=== PATIENT | female | born 1975 | race Two or more races ===

== ENCOUNTER 2017-05-16 13:30 | Emergency (ER) | payer OTHER ==
[2017-05-16 13:37] VITALS: BP 141/102; PULSE 90; TEMP 98; BMI 35.2
[2017-05-16] MEDS ORDERED: KETOROLAC TROMETHAMINE 60 MG/2 ML VIAL IM ONE (14:06)
[2017-05-16] MEDS ORDERED: KETOROLAC TROMETHAMINE 60 MG/2 ML VIAL ONE (14:11)
--- NOTE | 2017-05-16 14:19 | PDOC ---
History of Present Illness - General Chief Complaint: Back Pain Stated Complaint: BACK PAIN Time Seen by Provider: 05/16/17 14:00 History Source: Patient Exam Limitations: No Limitations - History of Present Illness Initial Comments: 05/16/17 14:14 CHIEF COMPLAINT: Lower back pain HISTORY OF PRESENT ILLNESS:42-year-old female, no significant medical history currently no medication presents emergency Department with generalized lower back pain. Nonradiating pain, no neurosensory deficits, no bowel or bladder difficulty incontinence or urinary retention, no saddle anesthesia, no footdrop. No history of IVDU or history of cancer. Patient reports 3 days ago pain started when she was working and was moving furniture. Denies any urinary symptoms. No hematuria. REVIEW OF SYSTEMS: GENERAL: Afebrile, denies any weakness RESPIRATORY: No cough, wheezing, or hemoptysis. CARDIAC: No chest pain or shortness of breath MUSCULOSKELETAL: Pain to generalized lower back. No point tenderness. Pain worse on right than left. SKIN : No erythema, no bruising, no deformity. GI/: Denies any abdominal pain, no urinary difficulty, incontinence or urinary retention. RECTAL: Denies any difficulty this A.m. NEUROLOGICAL: Denies any numbness or tingling. No neurosensory deficits. PHYSICAL EXAM: GENERAL: The patient is awake, alert, and fully oriented, in no acute distress. RESPIRATORY: Lungs clear bilaterally, no rhonchi wheezes or crackles CARDIAC: S1-S2 audible, no murmur rub or gallop MUSCULOSKELETAL: Pain to generalized lower back, worse right lateral lower back , no tingling or sensory deficit. Less than 2 second cap refill, +4 popliteal and pedal pulses. GI/: Abdomen soft, nontender, nondistended. No rebound tenderness. No masses palpable. MUSCULOSKELETAL: No spinal point tenderness. Normal reflexive and no deficits to sensation or strength. RECTAL:Deferred patient with no neurological finding SKIN: Warm, Dry, normal turgor, no erythema, no edema no bruising. Past History - Past Medical History Allergies/Adverse Reactions: Allergies Allergy/AdvReac Type Severity Reaction Status Date / Time No Known Allergies Allergy Verified 05/16/17 13:37 Home Medications: Ambulatory Orders Cyclobenzaprine HCl [Flexeril 10 mg] 10 mg PO BID PRN #20 tablet 05/16/17 Ibuprofen [Motrin -] 600 mg PO QID #28 tablet 05/16/17 - Immunization History Immunization Up to Date: Yes - Psycho/Social/Smoking Cessation Hx Anxiety: No Suicidal Ideation: No Smoking Status: No Smoking History: Never smoked Have you smoked in the past 12 months: No Number of Cigarettes Smoked Daily: 0 Cigars Per Day: 0 Information on smoking cessation initiated: Yes Hx Alcohol Use: No Drug/Substance Use Hx: No Substance Use Type: None Trauma Specific PMHX - Complaint Specific PMHX Arthritis: No Back Injury: No Neck Injury: No Hx Sacro Iliac Joint Dysfunction: No *Physical Exam - Vital Signs Last Vital Signs Temp Pulse Resp BP Pulse Ox 98.0 F 90 20 141/102 99 05/16/17 13:35 05/16/17 13:35 05/16/17 13:35 05/16/17 13:35 05/16/17 13:35 Medical Decision Making - Medical Decision Making 05/16/17 14:17 A/P: Patient with lower back pain, most likely musculoskeletal from moving furniture nonradiating, no dermatomal pain. No urinary symptoms. We will have her send urinalysis and urine culture patient reports the pain is to generalized lower back and on right lateral torso. Toradol 60 mg IM times one 05/16/17 14:20 Patient states relief of pain after the Toradol injection. Laboratory Results - last 24 hr 05/16/17 12:35 Urine Color Ltyellow Urine Appearance Clear Urine pH 7.0 Urine Protein Negative Urine Glucose (UA) Negative Urine Ketones Negative Urine Blood Negative Urine Nitrite Negative Urine Bilirubin Negative Urine Urobilinogen Negative Ur Leukocyte Esterase Negative Urine is negative, patient with lower back muscle strain. Follow-up with orthopedics in one week if pain persists Motrin and Flexeril as needed. I discussed the physical exam findings, ancillary test results and final diagnoses with the patient. I answered all of the patient's questions. The patient was satisfied with the care received and felt comfortable with the discharge plan and treatment plan. The patient will call to arrange follow-up and will return to the Emergency Department with any new, persistent or worsening symptoms. *DC/Admit/Observation/Transfer Diagnosis at time of Disposition: Low back pain Qualifiers: Chronicity: acute Back pain laterality: right Sciatica presence: without sciatica Qualified Code(s): M54.5 - Low back pain - Discharge Dispostion Disposition: HOME Condition at time of disposition: Good Admit: No - Prescriptions Prescriptions: Cyclobenzaprine HCl [Flexeril 10 mg] 10 mg PO BID PRN #20 tablet PRN Reason: Pain Ibuprofen [Motrin -] 600 mg PO QID #28 tablet - Referrals Referrals: Giuseppe Pierre MD [Staff Physician] - - Patient Instructions Printed Discharge Instructions: DI for Low Back Pain Additional Instructions: 1. Please return to the emergency department with any numbness, tingling, weakness, numbness or tingling to groin or legs, or loss of bowel or bladder function. 2. Use pain medication as ordered. 3. Please is to followup in the office of Dr. Pierre for evaluation within a week if no improvement. 4. Ice or heat 5. Refrain from lifting anything above 10 pounds, until pain resolved. - Post Discharge Activity Work/School Note: Back to Work
[2017-05-16 14:48] LABS: URINE APPEARANCE CLEAR; URINE BILIRUBIN NEGATIVE (NEGATIVE); URINE BLOOD NEGATIVE (NEGATIVE); URINE COLOR LTYELLOW; URINE GLUCOSE (UA) NEGATIVE (NEGATIVE); URINE KETONE NEGATIVE (NEGATIVE); URINE LEUK ESTERASE NEGATIVE (NEGATIVE); URINE NITRITE NEGATIVE (NEGATIVE); URINE PROTEIN NEGATIVE (NEGATIVE); URINE UROBILINOGEN NEGATIVE mg/dL (0.2-1.0)
== END 2017-05-16 15:19 | disposition home or self-care (01) ==
LOC: JERFT 13:30
PROC: 3E0233Z Introduction of Anti-inflammatory into Muscle, Percutaneous Approach (ICD-10-PCS; principal; 2017-05-16)
DX: M54.5 Low back pain (principal)
CPT/HCPCS: 81003; 87086; 99281-25

== ENCOUNTER 2018-02-13 10:38 | Emergency (ER) | payer OTHER ==
[2018-02-13 10:50] VITALS: TEMP 97; BMI 34.7
[2018-02-13] MEDS ORDERED: KETOROLAC TROMETHAMINE 60 MG/2 ML VIAL IM ONE (11:13)
[2018-02-13] MEDS ORDERED: KETOROLAC TROMETHAMINE 60 MG/2 ML VIAL ONE (11:30)
[2018-02-13 11:39] VITALS: BP 125/74; PULSE 86
--- NOTE | 2018-02-13 11:40 | PDOC ---
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 She did not take any medications, she does not take any meds this week. Pt is obese and posture is poor with flexion on LBP. She came in via EMS for pain Past History - Past Medical History Allergies/Adverse Reactions: Allergies Allergy/AdvReac Type Severity Reaction Status Date / Time No Known Allergies Allergy Verified 02/13/18 10:44 Home Medications: Ambulatory Orders Cyclobenzaprine HCl [Flexeril 10 mg] 10 mg PO TID PRN #9 tablet 09/04/17 Ibuprofen [Motrin -] 600 mg PO QID #28 tablet 09/04/17 COPD: No - Immunization History Immunization Up to Date: Yes - Suicide/Smoking/Psychosocial Hx Smoking Status: No Smoking History: Never smoked Have you smoked in the past 12 months: No Number of Cigarettes Smoked Daily: 0 Cigars Per Day: 0 Information on smoking cessation initiated: No Hx Alcohol Use: No Drug/Substance Use Hx: No Substance Use Type: None Review of Systems - Review of Systems Able to Perform ROS?: Yes Comments:: 02/13/18 15:23 ROS General statement: I have back pain Hematology: neg history of bleeding/blood thinners Skin: Neg for lesions, rash, bruising. HEENT: Neg symptoms Respiratory: Neg SOB or difficulty in breathing Cardiac: Neg chest pain GI: Neg pain, n/v : Neg problems on voiding MS: Neg for joint pain/stiffness, no edema Neuro: Neg for LOC, weakness, without numbness or tingling Endocrine: Neg for excess thirst/hunger, cold/heat intolerance, excess sweating Allergies: Neg for allergies PE General Appearance: This well appearing V/S: hemodynamically stable, afebrile Skin: WNL of pt's skin color, no signs of pallor, mottling, cyanosis Head:symmetrical Eyes: EOM's intact, PERRLA Ears: denies pain Nose: patent Throat: lips, teeth, gums, tongue, buccal mucos pink and moist Lungs: Chest symmetry equal. Cap refill <3 seconds. Lung sounds clear Cardiac: PMI at R 4MCL space, pos S1 and S2, regular rate. Abdomen: Soft, round, nontender : Not observed Muscularskeletal: Gait steady, ambulated in to ER, no edema +PMS with lower back pain Neuro: AAOx3, cognitively intact, speech clear and appropriate. *Physical Exam - Vital Signs Last Vital Signs Temp Pulse Resp BP Pulse Ox 97 F L 93 H 18 139/91 98 02/13/18 10:44 02/13/18 11:15 02/13/18 11:15 02/13/18 11:15 02/13/18 11:21 ED Treatment Course - Medications Given in the ED: ED Medications Discontinued Medications Generic Name Dose Route Start Last Admin Trade Name Freq PRN Reason Stop Dose Admin Ketorolac Tromethamine 60 mg 02/13/18 11:13 02/13/18 11:34 Toradol Injection - IM 02/13/18 11:14 60 mg ONCE ONE Administration Medical Decision Making - Medical Decision Making 02/13/18 15:24 Pt came in via EMS with c/o lower back pain and said she was lightheaded with the urge of anxiety causing b/p to elevate reassured pt orthostatics bp normal treated with toradol IM with great relief discharge with use of stretches and tylenol. *DC/Admit/Observation/Transfer Diagnosis at time of Disposition: Low back pain - Discharge Dispostion Disposition: HOME Condition at time of disposition: Stable Admit: No - Referrals - Patient Instructions Printed Discharge Instructions: Activity May Be Better then Rest for Low Back Pain Recovery Additional Instructions: Discharge instructions 1. Please follow up with your primary physician within the next few days and explain that you have been seen here in the Emergency Room. 2. If you experience any worsening of symptoms, please return to the ER 3. Rest, ice, Motrin as needed for pain, performed back stretches to help with lower back pain 4. Drink plenty of water - Post Discharge Activity Forms/Work/School Notes: Back to Work
--- NOTE | 2018-02-13 11:50 | PDOC ---
*Physical Exam - Vital Signs Last Vital Signs Temp Pulse Resp BP Pulse Ox 97 F L 86 17 125/74 98 02/13/18 10:44 02/13/18 11:15 02/13/18 11:15 02/13/18 11:15 02/13/18 11:21 - Physical Exam Comments: 02/13/18 11:50 The patient was examined by MILLIE Santiago under my direct supervision. I personally evaluated the patient. I concur with the above findings and the plan of care. ED Treatment Course - Medications Given in the ED: ED Medications Discontinued Medications Generic Name Dose Route Start Last Admin Trade Name Freq PRN Reason Stop Dose Admin Ketorolac Tromethamine 60 mg 02/13/18 11:13 02/13/18 11:34 Toradol Injection - IM 02/13/18 11:14 60 mg ONCE ONE Administration *DC/Admit/Observation/Transfer Diagnosis at time of Disposition: Low back pain - Discharge Dispostion Disposition: HOME Condition at time of disposition: Stable - Referrals - Patient Instructions Printed Discharge Instructions: Activity May Be Better then Rest for Low Back Pain Recovery Additional Instructions: Discharge instructions 1. Please follow up with your primary physician within the next few days and explain that you have been seen here in the Emergency Room. 2. If you experience any worsening of symptoms, please return to the ER 3. Rest, ice, Motrin as needed for pain, performed back stretches to help with lower back pain 4. Drink plenty of water - Post Discharge Activity Forms/Work/School Notes: Back to Work
== END 2018-02-13 11:50 | disposition home or self-care (01) ==
LOC: JER 10:38
PROC: 3E0233Z Introduction of Anti-inflammatory into Muscle, Percutaneous Approach (ICD-10-PCS; principal; 2018-02-13)
DX: M54.5 Low back pain (principal); E66.9 Obesity, unspecified; Z68.34 Body mass index [BMI] 34.0-34.9, adult
CPT/HCPCS: 99283-25

== ENCOUNTER 2018-03-09 21:42 | Emergency (ER) | payer OTHER ==
[2018-03-09 21:46] VITALS: BP 147/96; PULSE 100; TEMP 98.2; BMI 37.0
[2018-03-09] MEDS ORDERED: METOCLOPRAMIDE HCL INJECTION 10 MG/2 ML VIAL IVPB ONE (22:04)
--- NOTE | 2018-03-09 22:04 | PDOC ---
History of Present Illness - General Chief Complaint: Headache Stated Complaint: HEADACHE Time Seen by Provider: 03/09/18 21:53 History Source: Patient - History of Present Illness Initial Comments: 03/09/18 22:08 Best Contact:[phone] Pmhx:Migraines/HTN Pshx: 2008/D&C;ectopic Allergies:NKDA LMP:02/26/2018 42-year-old female presents to the emergency department complaining of bitemporal 5/10 dull throbbing nonradiating intermittent headache 3 hours with phonophobia/photophobia without nausea/vomiting, fever/chills, facial pains, neck pain/stiffness, back pains, chest pain, shortness of breath, flank pains, abdominal pains, extremity numbness or tingling sensation. There are no exacerbating factors. The pain is alleviated minimally at rest. Past History - Past Medical History Allergies/Adverse Reactions: Allergies Allergy/AdvReac Type Severity Reaction Status Date / Time No Known Allergies Allergy Verified 02/13/18 10:44 Home Medications: Ambulatory Orders Cyclobenzaprine HCl [Flexeril 10 mg] 10 mg PO TID PRN #9 tablet 09/04/17 Ibuprofen [Motrin -] 600 mg PO QID #28 tablet 09/04/17 Lisinopril 10 mg PO DAILY 03/09/18 COPD: No HTN: Yes - Immunization History Immunization Up to Date: Yes - Suicide/Smoking/Psychosocial Hx Smoking Status: No Smoking History: Never smoked Have you smoked in the past 12 months: No Number of Cigarettes Smoked Daily: 0 Cigars Per Day: 0 Information on smoking cessation initiated: No Hx Alcohol Use: No Drug/Substance Use Hx: No Substance Use Type: None Review of Systems - Review of Systems Able to Perform ROS?: Yes Comments:: 03/09/18 22:09 CONSTITUTIONAL: Absent: fever, chills, diaphoresis, generalized weakness, malaise, loss of appetite HEENT: Absent: rhinorrhea, nasal congestion, throat pain, throat swelling, difficulty swallowing, mouth swelling, ear pain, eye pain, visual Changes CARDIOVASCULAR: Absent: chest pain, loss of consciousness, palpitations, irregular heart rate, peripheral edema RESPIRATORY: Absent: cough, shortness of breath, dyspnea with exertion, orthopnea, wheezing, stridor, hemoptysis GASTROINTESTINAL: Absent: abdominal pain, abdominal distension, nausea, vomiting, diarrhea, constipation, melena, hematochezia GENITOURINARY: Absent: dysuria, frequency, urgency, hesitancy, hematuria, flank pain, genital pain MUSCULOSKELETAL: Absent: myalgia, arthralgia, joint swelling SKIN: Absent: rash, itching, pallor HEMATOLOGIC/IMMUNOLOGIC: Absent: easy bleeding, easy bruising, lymphadenopathy, frequent infections NEUROLOGIC: +Bitemporal bond Absent: focal weakness or paresthesias, dizziness, unsteady gait, seizure, mental status changes, bladder or bowel incontinence Is the patient limited Citizen Of [place] proficient: No *Physical Exam - Vital Signs Last Vital Signs Temp Pulse Resp BP Pulse Ox 98.2 F 100 H 16 147/96 100 03/09/18 21:44 03/09/18 21:44 03/09/18 21:44 03/09/18 21:44 03/09/18 21:44 - Physical Exam Comments: 03/09/18 22:10 GENERAL: Well developed, well nourished. Awake and alert. No acute distress. HEENT: Normocephalic, atraumatic. PERRLA, EOMI. No conjunctival pallor. Sclera are non- icteric. Moist mucous membranes. Oropharynx is clear. NECK: Supple. Full ROM. No JVD. Carotid pulses 2+ and symmetric, without bruits. No thyromegaly. No lymphadenopathy. CARDIOVASCULAR: Regular rate and rhythm. No murmurs, rubs, or gallops. Distal pulses are 2+ and symmetric. PULMONARY: No evidence of respiratory distress. Lungs clear to auscultation bilaterally. No wheezing, rales or rhonchi. ABDOMINAL: Soft. Non-tender. Non-distended. No rebound or guarding. No organomegaly. Normoactive bowel sounds. MUSCULOSKELETAL Normal range of motion at all joints. No bony deformities or tenderness. No CVA tenderness. EXTREMITIES: No cyanosis. No clubbing. No edema. No calf tenderness. SKIN: Warm and dry. Normal capillary refill. No rashes. No jaundice. NEUROLOGICAL: Alert, awake, appropriate. Cranial nerves 2-12 intact. No deficits to light touch and temperature in face, upper extremities and lower extremities. No motor deficits in the in face, upper extremities and lower extremities. Normoreflexic in the upper and lower extremities. Normal speech. Toes are down- going bilaterally. Gait is normal without ataxia. PSYCHIATRIC: Cooperative. Good eye contact. Appropriate mood and affect. *DC/Admit/Observation/Transfer Diagnosis at time of Disposition: Headache Qualifiers: Headache type: tension-type Headache chronicity pattern: unspecified pattern Intractability: not intractable Qualified Code(s): G44.209 - Tension-type headache, unspecified, not intractable - Discharge Dispostion Condition at time of disposition: Stable Decision to Admit order: No - Referrals Referrals: Ok Sarabia MD [Staff Physician] - - Patient Instructions Printed Discharge Instructions: DI for Headache Additional Instructions: Increase fluid intake Take Tylenol alternating with Motrin as needed for the headache Follow-up with the neurologist this week Return back to the emergency department for severe/persistent or worsening symptoms - Post Discharge Activity Forms/Work/School Notes: Back to Work
[2018-03-09] MEDS ORDERED: METOCLOPRAMIDE HCL INJECTION 10 MG/2 ML VIAL ONE (22:23)
== END 2018-03-09 23:24 | disposition home or self-care (01) ==
LOC: JER 21:42
DX: G44.209 Tension-type headache, unspecified, not intractable (principal)
CPT/HCPCS: 99282-25

== ENCOUNTER 2019-04-16 11:25 | Emergency (ER) | payer OTHER ==
[2019-04-16 11:32] VITALS: BP 133/95; PULSE 90; TEMP 98.5; BMI 30.9
--- NOTE | 2019-04-16 11:49 | PDOC ---
History of Present Illness - General Chief Complaint: Urinary Problem Stated Complaint: UTI Time Seen by Provider: 04/16/19 11:30 History Source: Patient Exam Limitations: No Limitations (urinary urgency and dysuria X 1 day) - History of Present Illness Abdominal Pain Onset Location: reports: suprapubic (pressure, no pain) Past History - Travel Traveled outside of the country in the last 30 days: No Close contact w/someone who was outside of country & ill: No - Past Medical History Allergies/Adverse Reactions: Allergies Allergy/AdvReac Type Severity Reaction Status Date / Time No Known Allergies Allergy Verified 03/09/18 23:23 Home Medications: Ambulatory Orders Cyclobenzaprine HCl [Flexeril 10 mg] 10 mg PO TID PRN #9 tablet 09/04/17 Ibuprofen [Motrin -] 600 mg PO QID #28 tablet 09/04/17 Lisinopril 10 mg PO DAILY 03/09/18 Nitrofurantoin Monohyd/M-Cryst [Macrobid -] 100 mg PO BID #14 capsule 04/16/19 COPD: No HTN: Yes - Immunization History Immunization Up to Date: Yes - Suicide/Smoking/Psychosocial Hx Smoking Status: No Smoking History: Never smoked Have you smoked in the past 12 months: No Number of Cigarettes Smoked Daily: 0 Cigars Per Day: 0 Information on smoking cessation initiated: No Hx Alcohol Use: No Drug/Substance Use Hx: No Substance Use Type: None Abd/GI Specific PMHX - Complaint Specific PMHX Colitis: No Review of Systems - Review of Systems Is the patient limited Bengali proficient: No Constitutional: No: Chills, Fever ABD/GI: No: Abd. Pain w/ defecation, Constipated, Diarrhea, Nausea, Vomiting, Abdominal cramping : Yes: Burning, Dysuria, Frequency, Urgency. No: Discharge, Flank Pain, Hematuria, Incontinence, Pain *Physical Exam - Vital Signs Last Vital Signs Temp Pulse Resp BP Pulse Ox 98.5 F 90 16 133/95 100 04/16/19 11:29 04/16/19 11:29 04/16/19 11:29 04/16/19 11:29 04/16/19 11:29 - Physical Exam General Appearance: Yes: Nourished Respiratory/Chest: positive: Lungs Clear, Normal Breath Sounds Cardiovascular: positive: Regular Rhythm, Regular Rate, S1, S2 Gastrointestinal/Abdominal: positive: Normal Bowel Sounds, Soft Musculoskeletal: positive: Normal Inspection Extremity: positive: Normal Capillary Refill, Normal Inspection Integumentary: positive: Normal Color Neurologic: positive: pool manager II-XII NML intact, Fully Oriented, Alert, Normal Mood/ Affect, Normal Response, Motor Strength 03/02 Medical Decision Making - Medical Decision Making 04/16/19 11:48 44y/o F with urinary urgency, frequency and dysuria since yesterday pt admits to suprapubic pressure but no pain she has no vaginal discharge, fever, chills or STI concerns UA sent *DC/Admit/Observation/Transfer Diagnosis at time of Disposition: UTI (urinary tract infection) Qualifiers: Urinary tract infection type: acute cystitis Hematuria presence: without hematuria Qualified Code(s): N30.00 - Acute cystitis without hematuria - Discharge Dispostion Disposition: HOME Decision to Admit order: No - Prescriptions Prescriptions: Nitrofurantoin Monohyd/M-Cryst [Macrobid -] 100 mg PO BID #14 capsule - Referrals Referrals: ON STAFF,NOT [Primary Care Provider] - - Patient Instructions Printed Discharge Instructions: Urinary Tract Infection Additional Instructions: You have a bladder infection please take antibiotics as prescribed A culture was also sent out, you may be contacted if the antibiotics needs to be changed Return to the ER if worsening symptoms occurs. - Post Discharge Activity
[2019-04-16 12:23] LABS: EPI CELLS 2.7 /HPF (0-5/HPF); HYALINE CASTS 10 /lpf (0-8); URINE APPEARANCE CLEAR; URINE BACTERIA 160.1 /hpf (NEGATIVE); URINE BILIRUBIN NEGATIVE (NEGATIVE); URINE COLOR YELLOW; URINE GLUCOSE (UA) NEGATIVE (NEGATIVE); URINE KETONE NEGATIVE (NEGATIVE); URINE LEUK ESTERASE 1+ (NEGATIVE); URINE NITRITE NEGATIVE (NEGATIVE); URINE PROTEIN NEGATIVE (NEGATIVE); URINE RBC 10 /hpf (0-4); URINE UROBILINOGEN 0.2 mg/dL (0.2-1.0); URINE WBC 30 /hpf (0-5)
== END 2019-04-16 12:48 | disposition home or self-care (01) ==
LOC: JERFT 11:25
DX: N30.00 Acute cystitis without hematuria (principal); I10 Essential (primary) hypertension
CPT/HCPCS: 81003; 84703; 87086; 87186; 99282-25

== ENCOUNTER 2019-10-28 13:54 | Emergency (ER) | payer OTHER ==
[2019-10-28 14:09] VITALS: BP 128/74; PULSE 85; TEMP 98.2; BMI 32.5
--- NOTE | 2019-10-28 14:54 | PDOC ---
History of Present Illness - General Chief Complaint: Cold Symptoms Stated Complaint: Cold Symptoms Time Seen by Provider: 10/28/19 14:21 - History of Present Illness Initial Comments: 10/28/19 14:52 44-year-old female with a past medical history of hypertension presents for evaluation of vomiting and diarrhea x1 day without systemic symptoms Past History - Past Medical History Allergies/Adverse Reactions: Allergies Allergy/AdvReac Type Severity Reaction Status Date / Time No Known Allergies Allergy Verified 10/28/19 14:09 Home Medications: Ambulatory Orders Cyclobenzaprine HCl [Flexeril 10 mg] 10 mg PO TID PRN #9 tablet 09/04/17 Ibuprofen [Motrin -] 600 mg PO QID #28 tablet 09/04/17 Lisinopril 10 mg PO DAILY 03/09/18 Nitrofurantoin Monohyd/M-Cryst [Macrobid -] 100 mg PO BID #14 capsule 04/16/19 COPD: No HTN: Yes - Immunization History Immunization Up to Date: Yes - Psycho Social/Smoking Cessation Hx Smoking Status: No Smoking History: Unknown if ever smoked Have you smoked in the past 12 months: No Number of Cigarettes Smoked Daily: 0 Cigars Per Day: 0 Hx Alcohol Use: No Drug/Substance Use Hx: No Substance Use Type: None Review of Systems - Review of Systems Constitutional: Yes: Malaise. No: Fever ABD/GI: Yes: Diarrhea, Nausea, Vomiting. No: Blood Streaked Bowels *Physical Exam - Vital Signs Last Vital Signs Temp Pulse Resp BP Pulse Ox 98.2 F 85 16 128/74 100 10/28/19 14:06 10/28/19 14:06 10/28/19 14:06 10/28/19 14:06 10/28/19 14:06 - Physical Exam 10/28/19 14:53 GENERAL: The patient is awake, alert, and fully oriented, in no acute distress. HEAD: Normal with no signs of trauma. EYES: sclera anicteric, conjunctiva clear. ENT: Ears normal tympanic membranes normal oropharynx clear uvula midline NECK: Normal range of motion LUNGS: Breath sounds equal, clear to auscultation bilaterally. No wheezes, and no crackles. HEART: S1 and S2 without murmur, rub or gallop. ABDOMEN: Soft, nontender, normoactive bowel sounds. No guarding, no rebound. No masses. EXTREMITIES: Normal range of motion, no edema. No clubbing or cyanosis. No cords, erythema, or tenderness. NEUROLOGICAL: Cranial nerves II through XII grossly intact. Normal speech, normal gait. PSYCH: Normal mood, normal affect. SKIN: Warm, Dry, normal turgor, no rashes or lesions noted. Medical Decision Making - Medical Decision Making 10/28/19 14:53 Supportive care for viral gastroenteritis follow-up with primary care physician Discharge - Discharge Information Problems reviewed: Yes Clinical Impression/Diagnosis: Gastroenteritis Condition: Stable Disposition: HOME - Admission No - Follow up/Referral Referrals: Ronald Smith MD [Staff Physician] - - Patient Discharge Instructions Patient Printed Discharge Instructions: Viral Gastroenteritis, DI for Viral Gastroenteritis -- Adult Additional Instructions: Small sips of Pedialyte throughout the day to maintain hydration. Return to the emergency room for worsening symptoms. Without fail follow-up with your primary care physician in 2 to 3 days for further evaluation and treatment options. - Post Discharge Activity Work/Back to School Note: Back to Work
== END 2019-10-28 14:56 | disposition home or self-care (01) ==
LOC: JERFT 13:54
DX: K52.9 Noninfective gastroenteritis and colitis, unspecified (principal); I10 Essential (primary) hypertension
CPT/HCPCS: 99281-25

== ENCOUNTER 2020-06-28 09:39 | Emergency (ER) | payer OTHER ==
[2020-06-28 10:02] VITALS: TEMP 98.6; BMI 37.0
--- NOTE | 2020-06-28 10:35 | PDOC ---
History of Present Illness - General Chief Complaint: Chest Pain Stated Complaint: CHEST PAIN / HEADACHE Time Seen by Provider: 06/28/20 10:31 History Source: Patient - History of Present Illness Presenting Symptoms: Chest Pain Timing/Duration: reports: intermittent Past History - Medical History Allergies/Adverse Reactions: Allergies Allergy/AdvReac Type Severity Reaction Status Date / Time No Known Allergies Allergy Verified 06/28/20 09:59 Home Medications: Ambulatory Orders Lisinopril 10 mg PO DAILY 03/09/18 COPD: No HTN: Yes - Surgical History Abdominal Surgery: Yes (TIBUAL LIGATION) - Reproductive History Is Patient Now?: No - Immunization History Immunization Up to Date: Yes - Psycho-Social/Smoking History Smoking Status: No Smoking History: Never smoked Have you smoked in the past 12 months: No Number of Cigarettes Smoked Daily: 0 Cigars Per Day: 0 - Substance Abuse Hx (Audit-C & DAST Scrn) How often the patient has a drink containing alcohol: Never Score: In Men: 4 or > Positive; In Women: 3 or > Positive: 0 Screen Result (Pos requires Nsg. Audit-10AR): Negative In the last yr the pt used illegal drug/Rx for NonMed reason: No Score: Yes response is considered Positive: 0 Screen Result (Positive result requires Nsg. DAST-10): Negative Review of Systems - Review of Systems Constitutional: No: Chills, Fever Respiratory: No: Cough, Shortness of Breath Cardiac (ROS): Yes: Chest Pain. No: Lightheadedness, Palpitations, Syncope ABD/GI: No: Nausea, Vomiting *Physical Exam - Vital Signs Last Vital Signs Temp Pulse Resp BP Pulse Ox 98.6 F 94 H 20 167/98 100 06/28/20 09:59 06/28/20 09:59 06/28/20 09:59 06/28/20 09:59 06/28/20 09:59 - Physical Exam General Appearance: Yes: Appropriately Dressed. No: Apparent Distress HEENT: positive: Normal Voice Neck: positive: Supple Respiratory/Chest: positive: Lungs Clear, Normal Breath Sounds. 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 There is normal sinus rhythm with a normal rate. The axis is normal. The intervals are normal. There are no ST or T wave abnormalities. Impression: Normal twelve-lead EKG ED Treatment Course - RADIOLOGY Radiology Studies Ordered: Category Date Time Status HEAD CT WITHOUT CONTRAST [CT] Stat CT Scan 06/28/20 10:35 Completed Medical Decision Making - Medical Decision Making 06/28/20 10:32 45 yo F, HTN on hctz, here with diffuse headache x3 days on and off, pressure- like in nature, 8 out of 10 at its worst, with no worsening factors. Has not taken anything for pain. Usually does not get ADKINS per pt. Also reports dizziness. No visual changes, nausea, vomiting or focal weakness. Pt states she took her BP yesterday and that it was 170s/100s. Reports compliance w/ her meds. Patient also reporting vague left-sided chest pain intermittently x several months, no worsening/alleviating factors. No sob, diaphoresis, palpitations or syncope. States she has been seen in ED for same w/ neg w/u and told to follow-up with her PMD. Patient states due to COVID she has not been able to see MD. No cardiology eval in past and no prior stress testing. No current chest pain in ED. No sig fmhx see exam New onset ADKINS in setting of elevated BP BP 160/80 nilda ED / no focal deficits and well ramin -CTH pending Chronic chest pain Neg w/u in past EKG unremarkable today Anticipate dc w/cards f/u for out-pt stress testing 06/28/20 13:16 CTH read as normal. Pt asx upon discharge. Dc w/ cards referral for better management of BP and further eval of CP Discharge - Discharge Information Problems reviewed: Yes Clinical Impression/Diagnosis: Chest pain Qualifiers: Chest pain type: unspecified Qualified Code(s): R07.9 - Chest pain, unspecified Headache Qualifiers: Headache type: unspecified Headache chronicity pattern: acute headache Intractability: not intractable Qualified Code(s): R51 - Headache Condition: Stable Disposition: HOME - Follow up/Referral Referrals: Shay Pina MD [Staff Physician] - - Patient Discharge Instructions Patient Printed Discharge Instructions: DI for Atypical Chest Pain, DI for Headache Additional Instructions: You need ro follow up with cardiology for further evaluation of your chest pain and better management of you blood pressure You can follow up with Dr Pina but if MD does not accept your insurance, you can call your insurance for list of cardiologists Your EKG and head CT were both normal today - Post Discharge Activity
[2020-06-28 13:25] VITALS: BP 157/84; PULSE 89
--- NOTE | 2020-06-29 10:38 | EKG ---
Test Reason : Blood Pressure : / mmHG Vent. Rate : 085 BPM Atrial Rate : 085 BPM P-R Int : 130 ms QRS Dur : 082 ms QT Int : 396 ms P-R-T Axes : 049 018 032 degrees QTc Int : 471 ms NORMAL SINUS RHYTHM NORMAL ECG WHEN COMPARED WITH ECG OF 18-MAR-2020 16:33, NO SIGNIFICANT CHANGE WAS FOUND Confirmed by Zack Irvin MD ([id number]) on 06/29/2020 10:37:34 AM Referred By: Confirmed By:Zack Irvin MD
== END 2020-06-28 13:23 | disposition home or self-care (01) ==
LOC: JER 09:39 → SUPCPDRO 09:39 → JER 13:23
DX: R07.9 Chest pain, unspecified (principal); R51 Headache
CPT/HCPCS: 70450-TC; 93005; 93010; 99284-25

== ENCOUNTER 2021-10-28 14:54 | Emergency (ER) | payer OTHER ==
[2021-10-28 15:15] VITALS: BP 112/76; PULSE 87; TEMP 97.9; BMI 29.2
[2021-10-31 21:09] LABS: SARS-CoV-2 NAA Not Detected (Not Detected)
== END 2021-10-28 17:05 | disposition home or self-care (01) ==
LOC: JER 14:54
DX: J06.9 Acute upper respiratory infection, unspecified (principal)
CPT/HCPCS: 99283-25; C9803; U0003; U0005

== ENCOUNTER 2022-02-22 23:55 | Emergency (ER) | payer OTHER ==
[2022-02-23 00:15] VITALS: BP 138/82; PULSE 62; TEMP 97.6; BMI 32.2
[2022-02-23] MEDS ORDERED: metroNIDAZOLE 250 MG TABLET PO ONE (00:28)
[2022-02-23 01:37] LABS: EPI CELLS 1 /uL (0-25.1); HYALINE CASTS 0 /uL (0-3.1); URINE APPEARANCE CLEAR; URINE BACTERIA 3 /uL (0-1359); URINE BILIRUBIN NEGATIVE (NEGATIVE); URINE COLOR YELLOW; URINE GLUCOSE (UA) NEGATIVE (NEGATIVE); URINE KETONE NEGATIVE (NEGATIVE); URINE LEUK ESTERASE NEGATIVE (NEGATIVE); URINE NITRITE NEGATIVE (NEGATIVE); URINE PROTEIN NEGATIVE (NEGATIVE); URINE RBC 73 /uL (0-23.9); URINE WBC 1 /uL (0-25.8)
[2022-02-23 02:28] LABS: SYPHILIS W/ RPR CONF NON-REACTIVE (NONREACTIVE)
[2022-02-23 02:58] LABS: HIV INTERPRETATION NEGATIVE (NEGATIVE)
== END 2022-02-23 02:01 | disposition home or self-care (01) ==
LOC: JER 23:55
DX: Z20.2 Contact with and (suspected) exposure to infections with a predominantly sexual mode of transmission (principal)
CPT/HCPCS: 36415; 81003; 84703; 86780; 87086; 87389; 87491; 87591; 99281-25

== ENCOUNTER 2022-05-06 21:13 | Emergency (ER) | payer OTHER ==
[2022-05-06 21:24] VITALS: BP 112/75; PULSE 67; TEMP 98.1; BMI 32.2
[2022-05-06] MEDS ORDERED: KETOROLAC TROMETHAMINE 30 MG/1 ML VIAL IM ONE (22:44)
[2022-05-06] MEDS ORDERED: KETOROLAC TROMETHAMINE 30 MG/1 ML VIAL ONE (22:45)
== END 2022-05-06 23:10 | disposition home or self-care (01) ==
LOC: JERFT 21:13
PROC: 3E0233Z Introduction of Anti-inflammatory into Muscle, Percutaneous Approach (ICD-10-PCS; principal; 2022-05-06)
DX: M54.50 Low back pain, unspecified (principal)
CPT/HCPCS: 99284-25

== ENCOUNTER 2022-05-25 07:42 | Emergency (ER) | payer OTHER ==
[2022-05-25 07:44] VITALS: BP 140/87; PULSE 70; RESP 18; TEMP 98.1; BMI 31.2
[2022-05-25] MEDS ORDERED: KETOROLAC TROMETHAMINE 30 MG/1 ML VIAL IVPUSH ONE (08:01)
[2022-05-25] MEDS ORDERED: METOCLOPRAMIDE HCL INJECTION 10 MG/2 ML VIAL IM ONE (08:01)
[2022-05-25] MEDS ORDERED: SODIUM CHLORIDE 1,000 ML IV STA (08:01)
[2022-05-25] MEDS ORDERED: METOCLOPRAMIDE HCL INJECTION 10 MG/2 ML VIAL ONE (08:11)
[2022-05-25] MEDS ORDERED: KETOROLAC TROMETHAMINE 30 MG/1 ML VIAL ONE (08:12)
[2022-05-25] MEDS ORDERED: METOCLOPRAMIDE HCL INJECTION 10 MG/2 ML VIAL IVPUSH ONE (08:25)
== END 2022-05-25 09:22 | disposition home or self-care (01) ==
LOC: JER 07:42
PROC: 3E033GC Introduction of Other Therapeutic Substance into Peripheral Vein, Percutaneous Approach (ICD-10-PCS; principal; 2022-05-25)
DX: G44.89 Other headache syndrome (principal)
CPT/HCPCS: 93005; 93010; 99284-25

== ENCOUNTER 2022-08-01 08:16 | Emergency (ER) | payer OTHER ==
[2022-08-01 08:28] VITALS: BP 134/83; PULSE 78; RESP 16; TEMP 97.7; BMI 33.2
[2022-08-01] MEDS ORDERED: IBUPROFEN 600 MG TABLET (FP) PO ONE ×2 (08:48→08:53)
[2022-08-01] MEDS ORDERED: LIDOCAINE 5% TOPICAL PATCH TP ONE (08:49)
[2022-08-01] MEDS ORDERED: LIDOCAINE 5% TOPICAL PATCH ONE (08:53)
[2022-08-01] MEDS ORDERED: LIDOCAINE PATCH REMOVAL MC SCH (22:00)
== END 2022-08-01 11:32 | disposition home or self-care (01) ==
LOC: JERFT 08:16
DX: M54.50 Low back pain, unspecified (principal); M25.551 Pain in right hip
CPT/HCPCS: 72170-TC-FY; 73502-TC-RT-FY; 99284-25

== ENCOUNTER 2022-10-06 13:57 | Emergency (ER) | payer SELFPAY ==
[2022-10-06 14:13] VITALS: BP 122/78; PULSE 78; RESP 18; TEMP 98; BMI 32.2
[2022-10-06] MEDS ORDERED: KETOROLAC TROMETHAMINE 30 MG/1 ML VIAL IM ONE (14:38)
[2022-10-06] MEDS ORDERED: METHOCARBAMOL 500 MG TABLET PO ONE (14:38)
[2022-10-06] MEDS ORDERED: LIDOCAINE 5% TOPICAL PATCH TP ONE (14:44)
[2022-10-06] MEDS ORDERED: METHOCARBAMOL 500 MG TABLET ONE (14:55)
[2022-10-06] MEDS ORDERED: LIDOCAINE 5% TOPICAL PATCH ONE (14:55)
[2022-10-06] MEDS ORDERED: KETOROLAC TROMETHAMINE 30 MG/1 ML VIAL ONE (14:56)
[2022-10-06] MEDS ORDERED: LIDOCAINE PATCH REMOVAL MC SCH (22:00)
== END 2022-10-06 15:04 | disposition home or self-care (01) ==
LOC: JER 13:57
PROC: 3E023GC Introduction of Other Therapeutic Substance into Muscle, Percutaneous Approach (ICD-10-PCS; principal; 2022-10-06)
DX: M54.41 Lumbago with sciatica, right side (principal)
CPT/HCPCS: 99284-25

== ENCOUNTER 2022-12-09 15:05 | Emergency (ER) | payer OTHER ==
[2022-12-09 15:16] VITALS: BP 120/81; PULSE 83; RESP 18; TEMP 97.8; BMI 32.2
[2022-12-09] MEDS ORDERED: LIDOCAINE 5% TOPICAL PATCH TP ONE (16:34)
[2022-12-09] MEDS ORDERED: KETOROLAC TROMETHAMINE 30 MG/1 ML VIAL IM ONE (16:34)
[2022-12-09] MEDS ORDERED: KETOROLAC TROMETHAMINE 30 MG/1 ML VIAL ONE (16:40)
[2022-12-09] MEDS ORDERED: LIDOCAINE 5% TOPICAL PATCH ONE (16:40)
[2022-12-09] MEDS ORDERED: LIDOCAINE PATCH REMOVAL MC SCH (22:00)
== END 2022-12-09 16:54 | disposition home or self-care (01) ==
LOC: JER 15:05 → JERFT 15:05
PROC: 3E023GC Introduction of Other Therapeutic Substance into Muscle, Percutaneous Approach (ICD-10-PCS; principal; 2022-12-09)
DX: M25.562 Pain in left knee (principal)
CPT/HCPCS: 73562-TC-LT-FY; 99284-25